=== PATIENT | male | born 1980 | race Caucasian/White ===

== ENCOUNTER 2018-07-19 09:49 | Emergency (ER) | payer BC ==
[~2018-07-19] VITALS: Ht 180.3 cm; Wt 136.4 kg
[2018-07-19 09:53] VITALS: BP 125/65; PULSE 90; TEMP 98.6
[2018-07-19] MEDS ORDERED: blood pressure (10:06)
[2018-07-19] MEDS ORDERED: thyroid (10:06)
[2018-07-19] MEDS ORDERED: OMNICEF 300MG300 MG PO (10:25)
[2018-07-19] MEDS ORDERED: DOXYCYCLINE 10100 MG PO (10:25)
== END 2018-07-19 11:14 | disposition home or self-care (01) ==
LOC: COL.ER 09:49
DX: L03.116 Cellulitis of left lower limb (principal); E03.9 Hypothyroidism, unspecified; F17.210 Nicotine dependence, cigarettes, uncomplicated; I10 Essential (primary) hypertension
CPT/HCPCS: J0696

== ENCOUNTER → 2023-06-03 | Outpatient (CLI) | payer BC ==
[~2023-06-03] MED LIST: DOXYCYCLINE 10100 MG PO; OMNICEF 300MG300 MG PO; blood pressure; thyroid
== END ==
LOC: DIA.ED 05-31 12:18
DX: E11.9 Type 2 diabetes mellitus without complications (principal)
CPT/HCPCS: G0108